=== PATIENT | female | born 1970 | race Caucasian/White ===

== ENCOUNTER 2016-09-08 07:27 | Inpatient (IN) | payer BC ==
[2016-09-08] VITALS (31 sets, daily range): BP systolic 104–161; BP diastolic 59–84; PULSE 74–114; RESP 11–22; Ht 165.1 cm; Wt 89.3 kg
[~2016-09-08] VITALS: Ht 165.1 cm; Wt 89.3 kg
[~2016-09-08 07:27] MED LIST: ROCURONIUM 50 MG INJ ONE
[2016-09-08] MEDS ORDERED: Metronidazole 500 MG in NS 100 ML IVPB ONE (07:30)
[2016-09-08] MEDS ORDERED: THROMBIN 5000 UNIT VIAL ONE (08:19)
[2016-09-08] MEDS ORDERED: METHYLENE BLUE 1% 10 ML INJ ONE (08:19)
[2016-09-08] MEDS ORDERED: VASOPRESSIN 20 UNITS INJ ONE (08:20)
[2016-09-08] MEDS: D5-NS + KCL 20 MEQ 1,000 ML IV SCH ×2 (09:18→19:14)
[2016-09-08] MEDS ORDERED: LIDOCAINE 2% (SDV) 5 ML INJ ONE (09:47)
[2016-09-08] MEDS ORDERED: PROPOFOL 20 ML ONE (09:47)
[2016-09-08] MEDS ORDERED: MIDAZOLAM 1 MG/ML 2 ML INJ ONE (09:47)
[2016-09-08] MEDS ORDERED: ROCURONIUM 50 MG INJ ONE ×2 (09:47→11:52)
[2016-09-08] MEDS ORDERED: SUCCINYLCHOLINE CHLORIDE 100 MG/5 ML SYG IV ONE (09:47)
[2016-09-08] MEDS ORDERED: morphine SULFATE/PF (10 MG/10 ML) INJ ONE (10:01)
--- NOTE | 2016-09-08 10:11 | HP ---
Date/Time of Note Date/Time of Note DATE: 09/08/16 TIME: 10:10 Assessment/Plan VTE Prophylaxis VTE Prophylaxis Intervention: SCD's Lines/Catheters IV [facility]from [facility] Saline Lock HPI/ROS Admit Date/Time Admit Date/Time Sep 08, 2016 at 07:27 Hx of Present Illness Woody Baird M.D. [facility] History and Physical Examination Katie Deal Date: September 01, 2016 :1970 Age: 46 Physicians: Online Program Coordinator Loader Operator Supervisor Oncologist Referring MD: Sharon Mirza M.D. History of the Present Illness: A 46 year old female with a gradually increasing pelvic mass. The mass is complex and 4-5 cm rt sided from a year ago with a Ca 125 -93 from May 2016 with an ovarian vs uterine mass and pain on repeat scan. Medical history/ROS: all other systems unremarkable. Surgical history: Salpingectomy 23 years ago Medications: Flu no, declined, Pneumococcal no, declined Allergies: 07/22/16 Amoxicillin Trihydrate 07/22/16 Prevacid Family Hx: non-contributary Social HX: non-contributary ROS: as above Colonoscopy: yes, 10 yrs ago Physical Examination Vitals (09/01/2016): Weight 199.6, Height 64, BP 140/70, BMI 34.2. General: Alert. HEENT: Pupils are equal, round, reactive to light and accommodation. Neck: Supple with no masses of lymphadenopathy. Breast: Deferred due to recent examination and responsibility of primary care physician. Chest: Clear to auscultation Heart: Normal rhythm with no murmur. Abdomen: Non tender, no ascites nor organomeglay. Pelvic exam: Uterus enlarged and irregular, possible right adnexal fullness or cul-de-sac nodularity noted Rectal: confirmatory with pelvic exam. Neurological: Grossly intact Assessment: Pelvic mass with elevated CA-125 Plan: TLH/ possible USO, possible BSO, possible UD, possible staging. All risks and benefits of this procedure have been discussed in detail with the patient, as well as alternative treatment strategies and their implications. The patient is aware that there is some possibility of a blood transfusion and its associated risks and benefits. She wishes to proceed and gives her informed consent. Woody Baird M.D. PMH/Family/Social Social History Smoking Status: Never smoker Exam/Review of Systems Vital Signs Vitals Vital Signs Date Time Temp Pulse Resp B/P Pulse Ox O2 Delivery O2 Flow Rate FiO2 09/08/16 08:41 98.6 97 16 161/84 100 Room Air Medications Medications Current Medications Potassium Chloride/Dextrose/ Sod Cl (D5-NS + KCl 20 Meq) 1,000 ml @ 100 mls/hr Q10H IV Last administered on 09/08/16t 09:18; Start 09/08/16 at 07:30; Stop 02/13 at 17:29 WOODY BAIRD MD Sep 08, 2016 10:11
--- NOTE | 2016-09-08 10:12 | HPN ---
Date/Time of Note Date/Time of Note DATE: 09/08/16 TIME: 10:11 Interval H&P Admission Note Pt. seen H&P reviewed: No system changes JOSE BAIRD MD Sep 08, 2016 10:11
[2016-09-08] MEDS ORDERED: PHENYLephrine (100 MCG/ML) 5ML SYG ONE ×2 (10:29→11:05)
[2016-09-08] MEDS ORDERED: DEXAMETHASONE 4 MG/ML 1 ML INJ ONE (10:30)
[2016-09-08] MEDS ORDERED: ONDANSETRON 4 MG INJ ONE (10:30)
[2016-09-08] MEDS ORDERED: CEFAZOLIN 1 GM INJ ONE (10:31)
[2016-09-08] MEDS ORDERED: metroNIDAZOLE 500 MG/NS (PMX) 100 ML IVPB ONE (10:32)
[2016-09-08] MEDS ORDERED: EPHEDrine SULFATE 50 MG/5 ML SYG ONE (11:51)
[2016-09-08] MEDS ORDERED: NALBUPHINE HCL (10 MG/1 ML) INJ IV PRN (12:30)
[2016-09-08] MEDS ORDERED: NALOXONE (0.4 MG/ML) INJ IV PRN (12:30)
[2016-09-08] MEDS ORDERED: DIPHENHYDRAMINE 50 MG INJ IV PRN ×3 (12:30→16:00)
[2016-09-08] MEDS ORDERED: ONDANSETRON 4 MG INJ IV PRN ×3 (12:30→16:00)
[2016-09-08] MEDS ORDERED: HYDROmorphONE 1 MG/ML SYG IV PRN (12:30)
[2016-09-08] MEDS ORDERED: NEOSTIGMINE 3 MG/3 ML SYRINGE ONE (14:22)
[2016-09-08] MEDS ORDERED: GLYCOPYRROLATE 0.4 MG INJ ONE (14:22)
[2016-09-08] MEDS ORDERED: HYDROmorphONE (0.2 MG/ML) 10ML SYG IV PRN (14:30)
[2016-09-08] MEDS ORDERED: MEPERIDINE 25 MG INJ IV PRN (14:30)
[2016-09-08] MEDS ORDERED: PROCHLORPERAZINE 10 MG INJ IV PRN (14:30)
[2016-09-08] MEDS ORDERED: FENTAnyl 50 MCG/ML VIAL IV PRN (14:30)
[2016-09-08] MEDS ORDERED: HYDROCODONE/APAP (5/325) TAB PO PRN (16:00)
[2016-09-08] MEDS ORDERED: KETOROLAC 15 MG INJ IV PRN (16:00)
[2016-09-08] MEDS ORDERED: morphine 2 MG INJ IV PRN (16:00)
[2016-09-08] MEDS ORDERED: CEFAZOLIN 1 GM/50 ML (PMX) 0 ML IVPB ONE (16:18)
[2016-09-08 16:26] LABS: ADD SCAN DIFF NO
[2016-09-08 16:28] LABS: ABNORMAL IP MESSAGE 1; BASOPHILS % 0.1 % (0.0-2.0); HEMATOCRIT 26.4 % (37.0-47.0); HEMOGLOBIN 8.1 g/dl (12.0-16.0); LYMPHOCYTES # 0.6 10^3/ul (0.8-2.9); LYMPHOCYTES % 5.3 % (15.0-51.0); MEAN CORPUSCULAR HEMOGLOBIN 24.2 pg (29.0-33.0); MEAN CORPUSCULAR HGB CONC 30.7 g/dl (32.0-37.0); MEAN CORPUSCULAR VOLUME 78.8 fl (82.0-101.0); MEAN PLATELET VOLUME 8.3 fl (7.4-10.4); MONOCYTE # 0.3 10^3/ul (0.3-0.9); NEUTROPHIL # 9.8 10^3/ul (1.6-7.5); NEUTROPHILS % 90.2 % (39.0-77.0); PLATELET COUNT 392 10^3/UL (140-415); RED BLOOD COUNT 3.35 10^6/ul (4.20-5.40); RED CELL DISTRIBUTION WIDTH 15.6 % (11.5-14.5); WHITE BLOOD COUNT 10.8 10^3/ul (4.8-10.8)
[2016-09-08 16:49] LABS: CREATININE 0.51 mg/dl (0.44-1.00); POTASSIUM 3.7 mmol/L (3.5-5.1)
[2016-09-08 16:53] LABS: ADD UMIC NO; UR ASCORBIC ACID NEGATIVE (NEGATIVE); UR BILIRUBIN (Dip) NEGATIVE (NEGATIVE); UR BLOOD (Dip) NEGATIVE (NEGATIVE); UR CLARITY CLEAR (CLEAR); UR COLOR STRAW (YELLOW); UR GLUCOSE (Dip) NEGATIVE (NEGATIVE); UR KETONES (Dip) NEGATIVE (NEGATIVE); UR LEUKOCYTE ESTERASE (Dip) NEGATIVE Leu/ul (NEGATIVE); UR NITRITE (Dip) NEGATIVE (NEGATIVE); UR SPECIFIC GRAVITY (Dip) 1.013 (1.003-1.030); UR TOTAL PROTEIN (Dip) NEGATIVE (NEGATIVE); UR UROBILINOGEN (Dip) NEGATIVE (NEGATIVE)
[2016-09-08 17:01] LABS: CALCIUM 8.3 mg/dl (8.4-10.2)
[2016-09-08] MEDS ORDERED: CEFAZOLIN 1 GM in SOD CHLORIDE 0.9% 100 ML IVPB SCH (18:00)
--- NOTE | 2016-09-08 18:35 | HP ---
Date/Time of Note Date/Time of Note DATE: 09/08/16 TIME: 18:30 Assessment/Plan VTE Prophylaxis VTE Prophylaxis Intervention: SCD's Lines/Catheters IV Catheter Type (from Nrs): Peripheral IV Urinary Cath still in place: Yes Reason Cath still needed: other (indicate) Assessment/Plan Assessment/Plan - Endometriosis, fibroids, and gradually increasing pelvic mass, status post laparoscopic hysterectomy, right oophorectomy, left salpingectomy, urethral dissection. Continue Velazquez catheter. Continue postoperative antibiotics and IV fluids. [place] and morphine as needed for pain and Zofran as needed for nausea. Follow-up surgical recommendations. Further recommendations based on clinical course. Plan of care discussed with Dr. Bob. HPI/ROS Admit Date/Time Admit Date/Time Sep 08, 2016 at 07:27 Hx of Present Illness The patient is 46-year-old female with endometriosis, fibroids, and gradually increasing pelvic mass. Patient was evaluated by Dr. Hortno in surgical consultation, and was brought to the hospital and underwent laparoscopic hysterectomy, right oophorectomy, left salpingectomy and ureteral dissection. Postoperatively patient experienced significant pain and patient will be admitted for further evaluation and management. Patient denies any fever, chills, denies nausea vomiting, denies chest pain, denies shortness of breath. ROS Constitutional: no complaints Eyes: no complaints Respiratory: no complaints Cardiovascular: no complaints Gastrointestinal: no complaints Genitourinary: no complaints Musculoskeletal: no complaints Skin: no complaints Neurologic: no complaints Endocrine: no complaints Psychological: no complaints Immunologic: no complaints PMH/Family/Social Past Medical History Patient denies having any chronic medical problems Past Surgical History Status post right salpingectomy for ectopic in 1993 Family History Significant Family History: no pertinent family hx Social History Alcohol Use: none Smoking Status: Never smoker Drug Use: none Exam/Review of Systems Vital Signs Vitals Vital Signs Date Time Temp Pulse Resp B/P Pulse Ox O2 Delivery O2 Flow Rate FiO2 09/08/16 18:15 97.6 76 16 121/74 97 Nasal Cannula 2.0 Exam Constitutional: alert, oriented, other (Obese) Head: atraumatic, normocephalic Eyes: nl conjunctiva Neck: non-tender, supple Respiratory: normal air movement Cardiovascular: nl pulses Gastrointestinal: non-tender, soft Genitourinary - Female: other (Status post surgery) Musculoskeletal: nl extremities to inspection Extremities: normal pulses Labs Result Diagram: 09/08/16 1615 09/08/16 1615 Medications Medications Current Medications Hydromorphone HCl (Dilaudid) 0.4 mg Q2H PRN IV PAIN LEVEL 1-5; Start 09/08/16 at 12:30; Stop 09/09/16 at 10:08 Hydromorphone HCl (Dilaudid) 0.6 mg Q2H PRN IV PAIN LEVEL 6-10; Start 09/08/16 at 12:30; Stop 09/09/16 at 10:08 Diphenhydramine HCl (Benadryl) 25 mg Q4H PRN IV PRURITUS; Start 09/08/16 at 12: 30; Stop 09/09/16 at 10:08 Nalbuphine HCl (Nubain) 5 mg Q4H PRN IV PRURITUS; Start 09/08/16 at 12:30; Stop 09/09/16 at 10:08 Ondansetron HCl (Zofran Inj) 4 mg Q6H PRN IV NAUSEA AND/OR VOMITING; Start 02/13 at 12:30; Stop 09/09/16 at 10:08 Naloxone HCl (Narcan) 0.2 mg Q2M PRN IV FOR RESP RATE 8 OR LESS; Start at 12:30; Stop 09/09/16 at 10:08 Morphine Sulfate (morphine) 2 mg Q2H PRN IV PAIN LEVEL 6-10; Start 09/08/16 at 16:00 Acetaminophen/ Hydrocodone Bitart ([place] (5/325)) 1 tab Q6H PRN PO PAIN LEVEL 6 -10; Start 09/08/16 at 16:00 Ketorolac Tromethamine (Toradol) 15 mg Q6H PRN IV PAIN; Start 09/08/16 at 16:00 ; Stop 09/11/16 at 15:59 Diphenhydramine HCl (Benadryl) 25 mg Q6H PRN IV ITCHING; Start 09/08/16 at 16: 00 Ondansetron HCl (Zofran Inj) 4 mg Q6H PRN IV NAUSEA AND/OR VOMITING; Start 02/13 at 16:00 Famotidine 20 mg 20 mg Q12 IV ; Start 09/08/16 at 21:00 Potassium Chloride 20 meq/ Lactated Ringer's 1,010 ml @ 100 mls/hr Q10H6M IV ; Start 09/08/16 at 19:00 Cefazolin Sodium (Ancef 1 Gm/50 ml (Pmx)) 50 ml @ 100 mls/hr Q8H IVPB ; Start 09/08/16 at 18:00; Stop 09/09/16 at 10:29 TRUDY MONTOYA Sep 08, 2016 18:34
[2016-09-08] MEDS: CEFAZOLIN 1 GM/50 ML (PMX) 50 ML IVPB SCH (19:31)
[2016-09-08] MEDS: POTASSIUM CHLORIDE 20 MEQ in LACTATED RINGER'S 1,000 ML IV SCH (19:31)
[2016-09-08] MEDS: FAMOTIDINE 20 MG INJ IV SCH (20:48)
[2016-09-09] MEDS: CEFAZOLIN 1 GM/50 ML (PMX) 50 ML IVPB SCH ×2 (01:41→10:00)
[2016-09-09] MEDS: POTASSIUM CHLORIDE 20 MEQ in LACTATED RINGER'S 1,000 ML IV SCH ×3 (05:49→23:33)
[2016-09-09 06:17] LABS: ADD SCAN DIFF NO
[2016-09-09 06:29] LABS: BASOPHILS % 0.5 % (0.0-2.0); EOSINOPHILS % 0.2 % (0.0-7.0); HEMOGLOBIN 7.7 g/dl (12.0-16.0); LYMPHOCYTES # 1.5 10^3/ul (0.8-2.9); LYMPHOCYTES % 24.4 % (15.0-51.0); MEAN CORPUSCULAR HEMOGLOBIN 23.5 pg (29.0-33.0); MEAN CORPUSCULAR HGB CONC 29.6 g/dl (32.0-37.0); MEAN CORPUSCULAR VOLUME 79.3 fl (82.0-101.0); MEAN PLATELET VOLUME 8.9 fl (7.4-10.4); MONOCYTE # 0.7 10^3/ul (0.3-0.9); MONOCYTES % 10.7 % (0.0-11.0); NEUTROPHIL # 3.9 10^3/ul (1.6-7.5); NEUTROPHILS % 63.9 % (39.0-77.0); PLATELET COUNT 411 10^3/UL (140-415); RED BLOOD COUNT 3.28 10^6/ul (4.20-5.40); RED CELL DISTRIBUTION WIDTH 15.9 % (11.5-14.5); WHITE BLOOD COUNT 6.2 10^3/ul (4.8-10.8)
[2016-09-09 06:52] LABS: ALBUMIN 3.3 g/dl (3.3-4.9); ALBUMIN/GLOBULIN RATIO 1.57; BILIRUBIN,INDIRECT 0.3 mg/dl (0-1.1); BILIRUBIN,TOTAL 0.3 mg/dl (0.2-1.3); CALCIUM 8.5 mg/dl (8.4-10.2); CREATININE 0.55 mg/dl (0.44-1.00); POTASSIUM 3.4 mmol/L (3.5-5.1); TOTAL PROTEIN 5.4 g/dl (6.1-8.1)
[2016-09-09] MEDS: FAMOTIDINE 20 MG INJ IV SCH ×2 (07:49→21:53)
[2016-09-09] MEDS: HYDROmorphONE 1 MG/ML SYG IV PRN ×2 (07:49→10:04)
[2016-09-09 08:26] VITALS: BP 117/63; RESP 18
[2016-09-09] MEDS ORDERED: ACETAMINOPHEN 325 MG TAB PO ONE (14:00)
[2016-09-09] MEDS ORDERED: POTASSIUM CHLORIDE 30 MEQ in SOD CHLORIDE 0.9% 150 ML IVPB ONE (14:00)
--- NOTE | 2016-09-09 14:00 | PN ---
Date/Time of Note Date/Time of Note DATE: 09/09/16 TIME: 13:58 Assessment/Plan VTE Prophylaxis VTE Prophylaxis Intervention: SCD's Lines/Catheters IV Catheter Type (from Nrs): Peripheral IV Urinary Cath still in place: Yes Assessment/Plan Assessment/Plan - Endometriosis, fibroids, and gradually increasing pelvic mass, status post laparoscopic hysterectomy, right oophorectomy, left salpingectomy, urethral dissection. - Continue Velazquez catheter. - Continue postoperative antibiotics and IV fluids. - [place] and morphine as needed for pain and Zofran as needed for nausea. Follow-up surgical recommendations. Further recommendations based on clinical course. Plan of care discussed with Dr. Bob. Exam/Review of Systems Vital Signs Vitals Vital Signs Date Time Temp Pulse Resp B/P Pulse Ox O2 Delivery O2 Flow Rate FiO2 09/09/16 08:26 98.1 91 18 117/63 100 09/08/16 18:15 Nasal Cannula 2.0 Intake and Output 09/08/16 09/08/16 09/09/16 15:00 23:00 07:00 Intake Total 3200 ml 540 ml 1560 ml Output Total 400 ml 550 ml 1800 ml Balance 2800 ml -10 ml -240 ml Exam Constitutional: alert, oriented, well developed Respiratory: clear to auscultation, normal air movement Cardiovascular: regular rate and rhythm Gastrointestinal: other (SP SURGERY- DDI), soft Musculoskeletal: joint tenderness, nl extremities to inspection Neurological: nl mental status, nl speech Results Result Diagram: 09/09/16 0530 09/09/16 0530 Results 24 hrs Laboratory Tests Test 09/08/16 14:44 09/08/16 16:15 09/09/16 05:30 09/09/16 05:32 Urine Color STRAW Urine Clarity CLEAR Urine pH 5.0 Urine Specific [place] 1.013 Urine Ketones NEGATIVE Urine Nitrite NEGATIVE Urine Bilirubin NEGATIVE Urine Urobilinogen NEGATIVE Urine Leukocyte Esterase NEGATIVE Urine Hemoglobin NEGATIVE Urine Glucose NEGATIVE Urine Total Protein NEGATIVE White Blood Count 10.8 6.2 # Red Blood Count 3.35 L 3.28 L Hemoglobin 8.1 L 7.7 L Hematocrit 26.4 L 26.0 L Mean Corpuscular Volume 78.8 L 79.3 L Mean Corpuscular Hemoglobin 24.2 L 23.5 L Mean Corpuscular Hemoglobin Concent 30.7 L 29.6 L Red Cell Distribution Width 15.6 H 15.9 H Platelet Count 392 411 Mean Platelet Volume 8.3 8.9 Neutrophils % 90.2 H 63.9 Lymphocytes % 5.3 L 24.4 Monocytes % 3.0 10.7 Eosinophils % 0.0 0.2 Basophils % 0.1 0.5 Nucleated Red Blood Cells % 0.0 0.0 Neutrophils # 9.8 H 3.9 Lymphocytes # 0.6 L 1.5 Monocytes # 0.3 0.7 Eosinophils # 0.0 0.0 Basophils # 0.0 0.0 Nucleated Red Blood Cells # 0.0 0.0 Sodium Level 131 L 132 L Potassium Level 3.7 3.4 L Chloride Level 103 102 Carbon Dioxide Level 25 28 Anion Gap 7 L 5 L Blood Urea Nitrogen 7 6 L Creatinine 0.51 0.55 Glucose Level 146 83 # Calcium Level 8.3 L 8.5 Total Bilirubin 0.3 Direct Bilirubin 0.00 Indirect Bilirubin 0.3 Aspartate Amino Transf (AST/SGOT) 25 Alanine Aminotransferase (ALT/SGPT) 32 Alkaline Phosphatase 62 Total Protein 5.4 L Albumin 3.3 Globulin 2.10 Albumin/Globulin Ratio 1.57 Lab Scanned Report LAB Medications Medications Current Medications Morphine Sulfate (morphine) 2 mg Q2H PRN IV PAIN LEVEL 6-10; Start 09/08/16 at 16:00 Acetaminophen/ Hydrocodone Bitart ([place] (5/325)) 1 tab Q6H PRN PO PAIN LEVEL 6 -10; Start 09/08/16 at 16:00 Ketorolac Tromethamine (Toradol) 15 mg Q6H PRN IV PAIN; Start 09/08/16 at 16:00 ; Stop 09/11/16 at 15:59 Diphenhydramine HCl (Benadryl) 25 mg Q6H PRN IV ITCHING; Start 09/08/16 at 16: 00 Ondansetron HCl (Zofran Inj) 4 mg Q6H PRN IV NAUSEA AND/OR VOMITING; Start 02/13 at 16:00 Famotidine 20 mg 20 mg Q12 IV Last administered on 09/09/16 07:49; Admin Dose 20 MG; Start 09/08/16 at 21:00 Potassium Chloride 20 meq/ Lactated Ringer's 1,010 ml @ 100 mls/hr Q10H6M IV Last administered on 7/13/17at 05:49; Admin Dose 100 MLS/HR; Start 09/08/16 at 19:00 Potassium Chloride/Sodium Chloride (KCl/NS) 165 ml @ 55 mls/hr ONCE ONCE IVPB ; Start 09/09/16 at 14:00; Stop 09/09/16 at 16:59 NEO WHEAT Sep 09, 2016 13:59
[2016-09-09] MEDS ORDERED: DIPHENHYDRAMINE 50 MG INJ IV ONE (17:30)
[2016-09-09 19:00] VITALS: BP 128/69; RESP 18
[2016-09-09] MEDS ORDERED: FUROSEMIDE 20 MG INJ IV SCH (19:30)
[2016-09-09] MEDS ORDERED: FUROSEMIDE 20 MG INJ IV ONE (19:30)
[2016-09-09] MEDS ORDERED: POTASSIUM CHLORIDE (SR) 20 MEQ TAB PO ONE (21:47)
--- NOTE | 2016-09-09 22:29 | PN ---
Date/Time of Note Date/Time of Note DATE: 09/09/16 TIME: 22:26 Assessment/Plan VTE Prophylaxis VTE Prophylaxis Intervention: SCD's Lines/Catheters IV Catheter Type (from Nrsg): Peripheral IV Urinary Cath still in place: Yes Reason Cath still needed: urinary retention Assessment/Plan Chief Complaint/Hosp Course fibroids Problems: Assessment/Plan A- doing well P- transfuse as anemic preop and risk of ooze; adv diet and possibly d/c tomorrow Subjective 24 Hr Interval Summary Free Text/Dictation Mild pain, mitch diet and + flatus. Exam/Review of Systems Vital Signs Vitals Vital Signs Date Time Temp Pulse Resp B/P Pulse Ox O2 Delivery O2 Flow Rate FiO2 09/09/16 19:00 99.0 99 18 128/69 96 09/08/16 18:15 Nasal Cannula 2.0 Intake and Output 09/08/16 09/08/16 09/09/16 15:00 23:00 07:00 Intake Total 3200 ml 540 ml 1560 ml Output Total 400 ml 550 ml 1800 ml Balance 2800 ml -10 ml -240 ml Exam Resp- clear CVS- nsr Abd- soft nt ext- nt no edema Results Result Diagram: 09/09/16 0530 09/09/16 0530 Results 24 hrs Laboratory Tests Test 09/09/16 05:30 09/09/16 05:32 White Blood Count 6.2 # Red Blood Count 3.28 L Hemoglobin 7.7 L Hematocrit 26.0 L Mean Corpuscular Volume 79.3 L Mean Corpuscular Hemoglobin 23.5 L Mean Corpuscular Hemoglobin Concent 29.6 L Red Cell Distribution Width 15.9 H Platelet Count 411 Mean Platelet Volume 8.9 Neutrophils % 63.9 Lymphocytes % 24.4 Monocytes % 10.7 Eosinophils % 0.2 Basophils % 0.5 Nucleated Red Blood Cells % 0.0 Neutrophils # 3.9 Lymphocytes # 1.5 Monocytes # 0.7 Eosinophils # 0.0 Basophils # 0.0 Nucleated Red Blood Cells # 0.0 Sodium Level 132 L Potassium Level 3.4 L Chloride Level 102 Carbon Dioxide Level 28 Anion Gap 5 L Blood Urea Nitrogen 6 L Creatinine 0.55 Glucose Level 83 # Calcium Level 8.5 Total Bilirubin 0.3 Direct Bilirubin 0.00 Indirect Bilirubin 0.3 Aspartate Amino Transf (AST/SGOT) 25 Alanine Aminotransferase (ALT/SGPT) 32 Alkaline Phosphatase 62 Total Protein 5.4 L Albumin 3.3 Globulin 2.10 Albumin/Globulin Ratio 1.57 Lab Scanned Report LAB Medications Medications Current Medications Morphine Sulfate (morphine) 2 mg Q2H PRN IV PAIN LEVEL 6-10 Last administered on 09/09/16 15:55; Admin Dose 2 MG; Start 09/08/16 at 16:00 Acetaminophen/ Hydrocodone Bitart ([place] (5/325)) 1 tab Q6H PRN PO PAIN LEVEL 6 -10; Start 09/08/16 at 16:00 Ketorolac Tromethamine (Toradol) 15 mg Q6H PRN IV PAIN; Start 09/08/16 at 16:00 ; Stop 09/11/16 at 15:59 Diphenhydramine HCl (Benadryl) 25 mg Q6H PRN IV ITCHING Last administered on 17:22; Admin Dose 25 MG; Start 09/08/16 at 16:00 Ondansetron HCl (Zofran Inj) 4 mg Q6H PRN IV NAUSEA AND/OR VOMITING; Start 02/13 at 16:00 Famotidine 20 mg 20 mg Q12 IV Last administered on 09/09/16 21:53; Admin Dose 20 MG; Start 09/08/16 at 21:00 Potassium Chloride/Lactated Ringer's (KCl/Lr) 1,010 ml @ 100 mls/hr Q10H6M IV Last administered on 09/09/16 05:49; Admin Dose 100 MLS/HR; Start 09/08/16 at 19:00 JOSE BAIRD MD Sep 09, 2016 22:29
[2016-09-10] MEDS: POTASSIUM CHLORIDE 20 MEQ in LACTATED RINGER'S 1,000 ML IV SCH (04:11)
[2016-09-10 05:46] LABS: ADD SCAN DIFF NO
[2016-09-10 05:47] LABS: BASOPHILS % 0.5 % (0.0-2.0); EOSINOPHILS % 0.2 % (0.0-7.0); HEMATOCRIT 31.5 % (37.0-47.0); HEMOGLOBIN 9.9 g/dl (12.0-16.0); LYMPHOCYTES # 1.5 10^3/ul (0.8-2.9); LYMPHOCYTES % 17.9 % (15.0-51.0); MEAN CORPUSCULAR HEMOGLOBIN 24.7 pg (29.0-33.0); MEAN CORPUSCULAR HGB CONC 31.4 g/dl (32.0-37.0); MEAN CORPUSCULAR VOLUME 78.6 fl (82.0-101.0); MEAN PLATELET VOLUME 8.8 fl (7.4-10.4); MONOCYTE # 0.6 10^3/ul (0.3-0.9); MONOCYTES % 6.9 % (0.0-11.0); NEUTROPHIL # 6.1 10^3/ul (1.6-7.5); NEUTROPHILS % 74.1 % (39.0-77.0); PLATELET COUNT 470 10^3/UL (140-415); RED BLOOD COUNT 4.01 10^6/ul (4.20-5.40); RED CELL DISTRIBUTION WIDTH 15.6 % (11.5-14.5); WHITE BLOOD COUNT 8.2 10^3/ul (4.8-10.8)
[2016-09-10 06:14] LABS: CREATININE 0.57 mg/dl (0.44-1.00); POTASSIUM 3.5 mmol/L (3.5-5.1)
[2016-09-10 07:00] VITALS: BP 153/79; RESP 20
[2016-09-10] MEDS: FAMOTIDINE 20 MG INJ IV SCH (09:24)
--- NOTE | 2016-09-10 13:57 | PN ---
Date/Time of Note Date/Time of Note DATE: 09/10/16 TIME: 13:54 Assessment/Plan VTE Prophylaxis VTE Prophylaxis Intervention: SCD's Lines/Catheters IV Catheter Type (from Nrs): Peripheral IV Urinary Cath still in place: No Assessment/Plan Chief Complaint/Hosp Course fibroids Problems: Assessment/Plan doing well. Possibly d/c later today or a.m. Subjective 24 Hr Interval Summary Free Text/Dictation + flatus and mitch diet and OOB. Exam/Review of Systems Vital Signs Vitals Vital Signs Date Time Temp Pulse Resp B/P Pulse Ox O2 Delivery O2 Flow Rate FiO2 09/10/16 07:00 98.2 109 20 153/79 99 09/08/16 18:15 Nasal Cannula 2.0 Intake and Output 09/09/16 09/09/16 09/10/16 15:00 23:00 07:00 Intake Total 1880 ml 800 ml Output Total 3000 ml 2400 ml Balance -1120 ml -1600 ml Exam Resp- clear CVS- NSR Abd- soft NT Ext NT no edema Results Result Diagram: 09/10/16 0439 09/10/16 0439 Results 24 hrs Laboratory Tests Test 09/10/16 04:39 09/10/16 07:19 White Blood Count 8.2 # Red Blood Count 4.01 #L Hemoglobin 9.9 #L Hematocrit 31.5 #L Mean Corpuscular Volume 78.6 L Mean Corpuscular Hemoglobin 24.7 L Mean Corpuscular Hemoglobin Concent 31.4 L Red Cell Distribution Width 15.6 H Platelet Count 470 H Mean Platelet Volume 8.8 Neutrophils % 74.1 Lymphocytes % 17.9 Monocytes % 6.9 Eosinophils % 0.2 Basophils % 0.5 Nucleated Red Blood Cells % 0.0 Neutrophils # 6.1 Lymphocytes # 1.5 Monocytes # 0.6 Eosinophils # 0.0 Basophils # 0.0 Nucleated Red Blood Cells # 0.0 Sodium Level 133 L Potassium Level 3.5 Chloride Level 99 Carbon Dioxide Level 28 Anion Gap 10 # Blood Urea Nitrogen 5 L Creatinine 0.57 Glucose Level 84 Calcium Level 9.0 Lab Scanned Report BLOOD TRANSFUSION Medications Medications Current Medications Acetaminophen/ Hydrocodone Bitart ([place] (5/325)) 1 tab Q6H PRN PO PAIN LEVEL 6 -10; Start 09/08/16 at 16:00 Diphenhydramine HCl (Benadryl) 25 mg Q6H PRN IV ITCHING Last administered on 17:22; Admin Dose 25 MG; Start 09/08/16 at 16:00 Ondansetron HCl (Zofran Inj) 4 mg Q6H PRN IV NAUSEA AND/OR VOMITING; Start 02/13 at 16:00 Famotidine 20 mg 20 mg Q12 IV Last administered on 09/10/16 09:24; Admin Dose 20 MG; Start 09/08/16 at 21:00 Potassium Chloride/Lactated Ringer's (KCl/Lr) 1,010 ml @ 50 mls/hr [id number] IV Last administered on 09/09/16 23:33; Admin Dose 50 MLS/HR; Start 09/08/16 at 19 :00 JOSE BAIRD MD Sep 10, 2016 13:56
[2016-09-10] MEDS ORDERED: HYDR-906 PO (16:41)
[2016-09-10 19:40] VITALS: BP 160/83; RESP 22
--- NOTE | 2016-09-12 20:54 | DS ---
Date/Time of Note Date/Time of Note DATE: 09/12/16 TIME: 20:51 Discharge Summary Admission/Discharge Info Admit Date/Time Sep 08, 2016 at 07:27 Discharge Date/Time Sep 10, 2016 at 19:00 Discharge Diagnosis - Endometriosis, fibroids, and gradually increasing pelvic mass, status post laparoscopic hysterectomy, right oophorectomy, left salpingectomy, urethral dissection. Patient Condition: Good Hx of Present Illness The patient is 46-year-old female with endometriosis, fibroids, and gradually increasing pelvic mass. Patient was evaluated by Dr. Horton in surgical consultation, and was brought to the hospital and underwent laparoscopic hysterectomy, right oophorectomy, left salpingectomy and ureteral dissection. Postoperatively patient experienced significant pain and patient will be admitted for further evaluation and management. Patient denies any fever, chills, denies nausea vomiting, denies chest pain, denies shortness of breath. Hospital Course - Endometriosis, fibroids, and gradually increasing pelvic mass, status post laparoscopic hysterectomy, right oophorectomy, left salpingectomy, urethral dissection. Continue Velazquez catheter after surge, postoperative antibiotics and IV fluids. [place] and morphine as needed for pain and Zofran as needed for nausea. Pt was able to urineate after Velazquez d/filiberto, pain is well controlled. D/ filiberto home. Home Meds Active Scripts Hydrocodone/Acetaminophen ([place] 5-325 Tablet) 1 Each Tablet, 1 EACH PO Q4, #30 TAB Prov:TRUDY MONTOYA 09/10/16 Follow-up Plan f/up with Dr Horton in 1-2 weeks. Primary Care Provider Not On Staff Doctor TRUDY MONTOYA Sep 12, 2016 20:53
--- NOTE | 2016-09-12 21:02 | OPR ---
Date/Time of Note Date/Time of Note DATE: 09/12/16 TIME: 21:02 Operative Report Free Text/Dictation OPERATIVE REPORT [facility] Name: [facility] Date: 09/08/16 Preoperative Diagnosis: 1-Right adnexal mass with uterine enlargement; fibroids a/o adenomyosis 2- Elevated CA-125 (93) 3- Pelvic pain 4- Menorrhagia Postoperative Diagnosis: 1- Benign right adnexal mass; pathology pending probable endometrioma 2- Multiple fibroids possible adenomyosis 3- Ureteral stricture 4- Extensive endometriosis Procedures: 1- Laparoscopic subtotal hysterectomy with right salpingoophorectomy, left salpingectomy 2- Bilateral ureteral dissection with repositioning 3- Retroperitoneal uterine artery ligation 4- Ablation of endometriosis 5- Minilaparotomy Surgeon: Dr. Horton Collar Turner: Dr. Allison Anesthesia: General with regional Indications for Surgery The patient was a 46- year old female with a 4-5 cm symptomatic right adnexal mass Name: [facility] and uterine enlargement consistent with fibroids and/or adenomyosis as well as an elevated CA-125 and pelvic pain. Findings and Summary The patient was laparoscoped and found to have a 4-6 cm right adnexal mass densely adherent to the pelvic sidewall and hypervascular fibroids that were distorting the retroperitoneal anatomy significantly with endometriosis and some obliteration of the cul-de-sac. Therefore it was necessary to open the retroperitoneum bilaterally and dissect and reposition the ureters bilaterally for the purposes of access to the IP-ligament on side of the mass and contralaterally due to adhesions as well as the lower uterine segment and the vasculature. Due to additional anatomic distortion by the enlarged uterus and hypervascualrity the uterine arteries were clipped bilaterally immediately distal to the branching of the hypogastrics. The laparoscopic supracervical hysterectomy with unilateral salpingoophorectomy was then completed with morcellation without incident. Procedure: After being prepped and draped in the usual manner an EEA sizer and pneumo- occluder was inserted vaginally. A 5-millimeter trocar was then placed immediately cephlad to the umbilicus without incident. Subsequently, we insufflated and placed two 5 millimeter trocars laterally and a 12 millimeter trocar suprapubically. At this time any pelvic adhesions were lysed with sharp dissection and an Omni as needed. Subsequently we explored and noted a 4-6 cm complex right adnexal mass densely adherent to the pelvic sidewall and the contralateral adnexia was grossly within normal limits in appearance but was adherent to the sidewall and there was significant uterine enlargement from probable fibroids and adenomyosis and hypervascularity, all distorting the retroperitoneal anatomy significantly, all necessitating a ureteral dissection with repositioning. Initially the right round ligament was transected with the Gyrus biopolar Cutting Forceps and the retroperitoneal spaced opened parallel to the IP ligament and Name: [facility] laterally with the same devise. The ureter was identified and because of the adnexal mass densely adherent to the sidewall and retroperitoneal area required a specific dissection and repositioning. The ureter was bluntly dissected away from the enlarged uterus and adnexia and broad ligaments with an Omni, and carefully repositioned lateral to the broad ligament. Because of some oozing and because the anatomy of the uterus with adjacent mass resulted in displacement of the vessels laterally it mandated that we isolate the uterine artery and vein adjacent to the ureter that was lateralized to the level of the hypogastric artery using the endo-dissector and Omni for hemostasis with the previously dissected ureter visualized. Therefore in this case the uterine artery was hemoclipped immediately distal to the branching of the hypogastric and at the bifurcation of the hypogastric, proximal to the branching of the uterine and obliterated umbilical; salvaging both observed superior and inferior vesicle while controlling the entire uterine with associated collateral branches. At this time the right IP-ligament was desiccated and transected with the Thunderbeat, after which the ureter was further dissected and lateralized with the Omni and Gyrus bipolar cutting forceps and the mass was further mobilized with blunt dissection and the right triple pedicle was desiccated and transected with the Omni and Thunderbeat, after which the mass was removed with minimal spillage and a negative on frozen section was obtained , consistent with and endometrioma and other areas of endometriosis were ablated with the argon beam cross country coach with the ureter visualized. Subsequently , the left round ligament was transected with a Gyrus bipolar cutting forceps and the retroperitoneum opened parallel to the infundibulo-pelvic (IP) ligament with a Gyrus bipolar cutting forceps and Omni. The ureteral dissection with repositioning was undertaken. The ureter was dissected away from the peritoneum with adjacent uterus with adnexia and repositioned with care using the endo- dissector and Gyrus bipolar cutting forceps and Omni bluntly, again with the dissection being somewhat required due to some distortion of the retroperitoneum by the large uterus with fibroids. This process was carried out throughout the ureteral length in the pelvis and it peristalsed normally once repositioned. Again, [facility] and because the anatomy of the uterus resulted in displacement of the vessels laterally it mandated that we isolate the uterine artery and vein adjacent to the ureter that was lateralized to the level of the hypogastric artery using the endo-dissector and Omni for hemostasis with the previously dissected ureter visualized. Therefore in this case the uterine artery was hemoclipped immediately distal to the branching of the hypogastric and at the bifurcation of the hypogastric, proximal to the branching of the uterine and obliterated umbilical; salvaging both observed superior and inferior vesicle while controlling the entire uterine with associated collateral branches. At this time the left triple pedicle was desiccated and transected with the Thunderbeat and the fallopian tube was removed with the Thunderbeat. At this time a corkscrew was placed in the aforementioned fibroids and the mass dissected away from the areolar tissue and ureter as well as vascular structures in the retroperitoneum with the endo-dissector and Omni in not near thermal sensitive structures. We then used a cork screw manipulator placed through the 12-mm suprapubic trocar to manipulate the uterus allowing development or the bladder flap uneventfully with the Gyrus Cutting Forceps and Omni and blunt dissection. The right uterine artery was transected with a Thunderbeat perpendicular to the distal lower uterine segment and the Cardinal ligament and utero-sacral ligament were both transected with a Thunderbeat and Omni parallel to the lower uterine segment and cervix via the contralateral trocar site. An identical series of steps were taken on the left side. Hence, the uterus was removed from the cervix with the Omni and Thunderbeat and hemostasis confirmed. The cervix and the endocervical canal were thoroughly ablated with the argon beam cross country coach. The 12-millimeter trocar site was minimally extended to 3-4 cm midline to a minilaparotomy with sharp dissection and an electrocautery and uterus was then placed in a 15-mm sac and removed with morcellation in the sac without incident using Amrina clamps and a scalpel for morcellation, with all tissue accounted for with a negative frozen section was obtained consistent with a benign fibroid. The incision was partly closed with interrupted 0- Vicryl suture, after which the 12-millimeter trocar was reinserted. Additional efforts were made Name: [facility] to remove any possible implants of endometriosis thru ablation with the argon beam cross country coach throughout the anterior cul-de-sac and the posterior cul-de-sac as well with care. After irrigating and assuring hemostasis the 12 millimeter trocar was removed and the fascia was closed with 0-vicryl using an endo-close devise. The gas was removed and the skin of all sites then closed with interrupted 4-0 Plain Gut. The EBL was 100cc and the patient tolerated the procedure well and left the OR in good condition. Woody Horton M.D. WOODY HORTON MD Sep 12, 2016 21:02
== END 2016-09-10 19:00 | disposition home or self-care (01) | DRG 743 ==
LOC: REC 07:27 → MS1 16:55
PROVIDERS: ATTEND Internal Medicine
PROC: 0UT00ZZ Resection of Right Ovary, Open Approach (ICD-10-PCS; 2016-09-08)
PROC: 0UT60ZZ Resection of Left Fallopian Tube, Open Approach (ICD-10-PCS; 2016-09-08)
PROC: 0TS84ZZ Reposition Bilateral Ureters, Percutaneous Endoscopic Approach (ICD-10-PCS; 2016-09-08)
PROC: 0UJD4ZZ Inspection of Uterus and Cervix, Percutaneous Endoscopic Approach (ICD-10-PCS; 2016-09-08)
PROC: 30233N1 Transfusion of Nonautologous Red Blood Cells into Peripheral Vein, Percutaneous Approach (ICD-10-PCS; 2016-09-08)
PROC: 0UT90ZZ Resection of Uterus, Open Approach (ICD-10-PCS; principal; 2016-09-08 09:30)
DX: N83.8 Other noninflammatory disorders of ovary, fallopian tube and broad ligament (principal); N13.5 Crossing vessel and stricture of ureter without hydronephrosis; D25.9 Leiomyoma of uterus, unspecified; N80.1 Endometriosis of ovary; R33.9 Retention of urine, unspecified; D64.9 Anemia, unspecified; G89.18 Other acute postprocedural pain; Z53.31 Laparoscopic surgical procedure converted to open procedure
CPT/HCPCS: 36430; 80048; 80053; 81003; 84703; 85025; 86850; 86900; 86901; 86920; 87086; 88104; 88302; 88305; 88307; J1940; J0690; J1100; J1170; J1200; J2250; J2270; J2274; J2370; J2405; J2710; J3480; J7120; J7999; P9016